=== PATIENT | male | born 1940 | race Caucasian/White ===

== ENCOUNTER → 2017-07-29 | Outpatient (CLI) | payer MEDICARE ==
[~2017-07-29] MED LIST: ATOR40TA16 PO; CARV6.252 PO; DENO120P SQ; ENAL5TAB PO; FURO40TA PO; GABA300C5 PO; PRAD150C PO; PRED5TAB PO; ZYTI250T PO
[2017-07-29 10:48] LABS: AUTOMATED NEUTROPHIL # 3.8 TH/MM3 (1.8-7.7); BASOPHIL % 0.5 % (0.0-2.0); EOSINOPHIL # 0.1 TH/MM3 (0-0.4); EOSINOPHIL % 2.1 % (0.0-4.0); HEMATOCRIT 36.5 % (39.0-51.0); HEMOGLOBIN 12.3 GM/DL (13.0-17.0); LYMPH % 16.5 % (9.0-44.0); MEAN CELL VOLUME 97.1 FL (80.0-100.0); MEAN CORPUSCULAR HEMOGLOBIN 32.7 PG (27.0-34.0); MEAN CORPUSCULAR HGB CONC 33.7 % (32.0-36.0); MONO % 14.3 % (0.0-8.0); MONOCYTE # 0.8 TH/MM3 (0-0.9); NEUT % 66.6 % (16.0-70.0); PLATELET COUNT 162 TH/MM3 (150-450); RED BLOOD COUNT 3.76 MIL/MM3 (4.50-5.90); RED CELL DISTRIBUTION WIDTH 14.1 % (11.6-17.2); WHITE BLOOD COUNT 5.8 TH/MM3 (4.0-11.0)
[2017-07-29 10:51] LABS: INTERNATIONAL NORMALIZED RATIO 1.2 RATIO; PROTHROMBIN TIME - PATIENT 12.2 SEC (9.8-11.6)
--- NOTE | 2017-07-29 11:00 | RADRPT ---
EXAM DATE: 07/29/2017 10:38 AM EDT AGE/SEX: 76 years / Male INDICATIONS: Evaluate for pneumonia, pneumothorax or communicable disease. Pre op lumbar surgery CLINICAL DATA: This is the patient's initial encounter. Patient reports that signs and symptoms have been present for 1 day and indicates a pain score of 0/10. MEDICAL/SURGICAL HISTORY: None. Pacemaker. COMPARISON: No prior [facility] exams available for comparison. FINDINGS: PA and lateral views of the chest demonstrate mild cardiomegaly. No pulmonary vascular engorgement. L ungs are clear without infiltrate or effusion. Pacing device overlies the left chest. A degenerative thoracic spine. CONCLUSION: Cardiomegaly. Clear lungs. Electronically signed by: Jhony Hart MD 07/29/2017 10:58 AM EDT
[2017-07-29 11:02] LABS: ALBUMIN 3.7 GM/DL (3.4-5.0); AST (GOT) 29 U/L (15-37); BICARBONATE 30.3 MEQ/L (21.0-32.0); BLOOD UREA NITROGEN 23 MG/DL (7-18); CALCIUM 8.9 MG/DL (8.5-10.1); CHLORIDE 104 MEQ/L (98-107); CREATININE 1.04 MG/DL (0.60-1.30); GLOMERULAR FILTRATION RATE 69 ML/MIN (>89); GLUCOSE,FASTING 94 MG/DL (74-99); SODIUM (NA) 143 MEQ/L (136-145)
[2017-07-29 11:03] LABS: ALT (GPT) 24 U/L (12-78)
[2017-07-29 11:05] LABS: ALKALINE PHOSPHATASE 54 U/L (45-117); TOTAL BILIRUBIN ADULT 0.7 MG/DL (0.2-1.0); TOTAL PROTEIN 7.2 GM/DL (6.4-8.2)
== END ==
LOC: CLAB 09:08
PROVIDERS: ATTEND Neurological Surgery
DX: Z01.810 Encounter for preprocedural cardiovascular examination (principal); Z01.811 Encounter for preprocedural respiratory examination; M48.061 Spinal stenosis, lumbar region without neurogenic claudication; M54.16 Radiculopathy, lumbar region
CPT/HCPCS: 36415; 71046; 80053; 85025; 85610; 85730; 87640; 87641

== ENCOUNTER → 2017-08-10 | Day surgery (SDC) | payer MEDICARE ==
[~2017-08-10] VITALS: Ht 167.6 cm; Wt 82.1 kg
[~2017-08-10] MED LIST changes: +ABIRATERONE 1000 MG PO SCH; +BUPIVACAINE LIPOSOME PF 1.3% 20 ML VIAL INFIL ONE; +BUPIVACAINE LIPOSOME PF 1.3% 20 ML VIAL ONE; +CARVEDILOL 6.25 MG TAB PO SCH; +CHLORHEXIDINE GLUCONATE 2 % 1 PACK (2 CLOTHS) TOPICAL PRN; +DENOSUMAB 120 MG SQ SCH; +DO NOT ADM ANY ANTICOAGULANT DRUGS PRN; +ENALAPRIL MALEATE 5 MG TAB PO SCH; +FUROSEMIDE 40 MG TAB PO SCH; +GABAPENTIN 300 MG CAP PO SCH; +GELFOAM SIZE 100 ONE; +GENTAMICIN SULFATE 80 MG/2 ML VIAL ONE; +HYDR-3583 PO; +LACTATED RINGER'S 1000 ML IV PRN; +LEUP22.53 SQ; +LEUPROLIDE 22.5 MG SQ SCH; +LIDOCAINE 1%/EPINEPHrine 1:100,000 SOLN 20 ML VIAL ONE; +METOPROLOL TARTRATE 25 MG TAB PO PRN; +MIDAZOLAM HCL 2 MG/2 ML VIAL ONE; +POVIDONE IODINE 5% (ANTISEPSIS KIT) 4 APPLICATIONS EACH NARE PRN; +PROPOFOL 500 MG/50 ML INJ 50 ML ONE; +SODIUM CHLORID 0.9% 500 ML IV PRN; +THROMBIN (TOPICAL) 5,000 UNIT VIAL ONE; +ceFAZolin 1,000 MG/NS 100 ML IV SCH; +ceFAZolin INJ 1,000 MG VIAL IV ONE; +predniSONE 5 MG TAB PO SCH
--- NOTE | 2017-08-10 12:00 | PD.OP ---
Operative Report Date of Surgery: Aug 10, 2017 Preoperative Diagnosis: (1) Lumbar radiculopathy (2) Lumbar canal stenosis (3) Lumbar degenerative disc disease 1. L4-5 degenerative disc disease 2. Left L4-5 canal and foraminal stenosis 3. Left L5 radiculopathy Postoperative Diagnosis: (1) Lumbar radiculopathy (2) Lumbar canal stenosis (3) Lumbar degenerative disc disease 1. L4-5 degenerative disc disease 2. Left L4-5 canal and foraminal stenosis 3. Left L5 radiculopathy Procedure: 1. Left L4-5 decompressive semi-laminectomy, medial facetectomy, foraminotomy, decompression left L4 and L5 nerve roots. Anesthesia: General Surgeon: Juan David De La O Audograph Operator(s): Estrella Gambino Operation and Findings: Findings: Extensive left L4-5 posterior osteophytic disc complex with severe adhesions around the thecal sac and exiting left L5 nerve root. Prominent hypertrophy medial left L4-5 superior facet with significant foraminal stenosis , impingement exiting L5 nerve root. Procedure in detail: The patient was brought into the operating room and general endotracheal anesthesia induced without difficulty. EILEEN hose and sequential compression devices were placed. The Weeks catheter was placed. Lines were established by anesthesia. Leads for intraoperative neuro monitoring were placed and a baseline study obtained. The patient was positioned on the concentric Duke table with the side bolsters and all extremities appropriately padded. Appropriate time-out procedure was performed with all personnel present and in agreement. 1% Xylocaine with epinephrine was used for local infiltration over the incision site which was made just to the left of midline at the L4-5 level. The incision was carried sharply down to the lumbodorsal fascia which was incised adjacent to the spinous processes. Lopez elevator was used for subperiosteal elevation of paraspinous musculature and fascia away from the lamina and spinous process of L4 and L5 on the left side. The deep self- retaining retractor was placed. The appropriate levels were verified with intraoperative C-arm. Microscope was moved into place and used for the remainder of the procedure including the closure. At the left L4-5 level, the TPS drill with a 5 mm bone bur was used to remove the inferior two thirds of the more cephalad lamina and the superior aspect of the more caudal lamina along with a moderate amount of the bilateral medial facet, taking care not to disrupt the integrity of the facet or pars intra- articularis. The hypertrophied ligamentum flavum at the left L4-5 level was elevated away from the thecal sac with the thin ligament dissector and resected with the 15 blade knife and the Kerrison rongeur out to the level of the deep lateral recess to completely decompress the thecal sac and exiting nerve roots. The exiting left L5 nerve root was followed to the level of the left L5 medial pedicle to ensure that it was well identified and decompressed. There was extensive adhesion around the thecal sac and exiting left L5 nerve root. Extensive dissection with the microdissectors under high-power magnification with the microscope was necessary to free up the adhesions and gently retract the exiting left L5 nerve root and thecal sac to expose the underlying left L4-5 posterior osteophytic disc complex. The osteophytic disc was removed by combination of incision with 11 blade knife , impacting with a reverse curette and thin foot plate impactor, and removing with the pituitary biopsy forceps. There appeared to be a component of chronic desiccated herniated disc material beneath the annulus and posterior longitudinal ligament extending towards the left L5 pedicle in the lateral recess which was removed along with the osteophyte. There is noted to be significant medial left L4-5 foraminal stenosis impinging on the exiting left L4 nerve root. The superior aspect of the more inferior facet along with hypertrophied ligament at the medial foramen were removed with the Kerrison rongeur to perform the left L4-5 foraminotomy. The nerve roots appeared well decompressed at the end of the procedure. No spinal fluid leakage was encountered. The disc and annulus at each level was visualized to make sure that there was no significant disc displacement or herniation. Bleeding was carefully controlled with the bipolar forceps. The closure was performed with 0 Vicryl interrupted for the deep and superficial fascia, with 3-0 Vicryl interrupted subcutaneous closure, and 4-0 Vicryl running subcuticular closure. A dressing of sterile Mastisol, Steri- Strips, and Primapore was placed. The patient was taken to recovery room in stable condition. All counts were correct at the end of the case. Estimated blood loss was 100 cc. No specimen was sent to pathology Neuro monitoring remained stable during the procedure Juan David De La O MD Aug 10, 2017 12:00
--- NOTE | 2017-08-10 12:37 | RADRPT ---
EXAM DATE: 08/10/2017 12:32 PM EDT AGE/SEX: 76 years / Male INDICATIONS: Herniated disk L4-5 laminectomy discectomy. CLINICAL DATA: This is the patient's initial encounter. Patient reports that signs and symptoms have been present for 1 day and indicates a pain score of Nonresponsive. MEDICAL/SURGICAL HISTORY: Non-responsive. Non-responsive. COMPARISON: No prior exams available for comparison. FINDINGS: A single view of the spine was performed. There is a surgical instrument directed towards the L4-L5 posterior elements. CONCLUSION: Localization of the L4-L5 level. Electronically signed by: Marshall Villareal MD 08/10/2017 12:36 PM EDT
--- NOTE | 2017-08-10 12:50 | HHI.FF ---
Face to Face Verification Diagnosis: (1) Lumbar radiculopathy (2) Lumbar degenerative disc disease (3) Lumbar canal stenosis Home Health Nursing Order: Medical education Signs/symptoms of disease process Wound care and dressing changes Instructions: Monitor signs of post operative hematoma, Lower extremity neurologic symptoms or deficit, bladder dysfunction. DRESSING DRY x 7 DAYS POST OP, THEN MAY REMOVE OUTER DRESSING AND GET STERI STRIPS WET AND LET THEM FALL OFF ON THEIR OWN I have seen patient Clarisa Thrasher on 08/10/17. My clinical findings support the need for the requested home health care services because: Deconditioned w/ increased weakness Limited ability to care for self I certify that my clinical findings support that this patient is homebound because: Impaired cognitive ability/safety Unsteady gait/balance Unable to use public transportation Juan David De La O MD Aug 10, 2017 12:50
[2017-08-10 13:45] VITALS: BP 104/53; PULSE 62; RESP 16; TEMP 97.5; O2SAT 100
== END | disposition home or self-care (01) ==
LOC: HSDC 06:20
PROVIDERS: ATTEND Neurological Surgery
DX: M51.16 Intervertebral disc disorders with radiculopathy, lumbar region (principal); M48.061 Spinal stenosis, lumbar region without neurogenic claudication; I48.91 Unspecified atrial fibrillation; Z95.0 Presence of cardiac pacemaker
CPT/HCPCS: 00630; 63030; 72020; 76000; 82805; C9290; J0690; J1580; J2250; J3010; J7120